=== PATIENT | female | born 1955 | race Caucasian/White ===

== ENCOUNTER → 2023-08-02 13:22 | Outpatient (REF) | payer MEDICARE, BC, SELFPAY | LOC: HWRAD 13:22 | PROVIDERS: ATTENDING PHYSICIAN Nurse Practitioner Primary Care | DX: M25.552 Pain in left hip (principal); Z80.52 Family history of malignant neoplasm of bladder | CPT/HCPCS: 76770 ==

== ENCOUNTER → 2023-09-16 10:45 | Outpatient (REF) | payer MEDICARE, BC, SELFPAY | LOC: HWRAD 10:45 | PROVIDERS: ATTENDING PHYSICIAN Internal Medicine Endocrinology, Diabetes & Metabolism; FAMILY PHYSICIAN Nurse Practitioner Primary Care | DX: E04.2 Nontoxic multinodular goiter (principal) | CPT/HCPCS: 76536 ==

== ENCOUNTER → 2024-04-18 15:48 | Outpatient (REF) | payer MEDICARE, BC, SELFPAY | LOC: WDC 15:48 | PROVIDERS: ATTENDING PHYSICIAN Student in an Organized Health Care Education/Training Program; FAMILY PHYSICIAN Internal Medicine Geriatric Medicine | DX: Z12.31 Encounter for screening mammogram for malignant neoplasm of breast (principal) | CPT/HCPCS: 77063; 77067 ==

== ENCOUNTER → 2024-09-14 11:50 | Outpatient (REF) | payer MEDICARE, BC, SELFPAY | LOC: HWRCS 11:50 | PROVIDERS: ATTENDING PHYSICIAN Nurse Practitioner Primary Care | DX: E11.9 Type 2 diabetes mellitus without complications (principal); E78.2 Mixed hyperlipidemia; I10 Essential (primary) hypertension; R06.09 Other forms of dyspnea | CPT/HCPCS: 93005; 93306 ==

== ENCOUNTER → 2024-09-19 13:17 | Outpatient (REF) | payer MEDICARE, BC, SELFPAY | LOC: RCS 13:17 | PROVIDERS: ATTENDING PHYSICIAN Nurse Practitioner Primary Care | DX: E11.9 Type 2 diabetes mellitus without complications (principal); E78.2 Mixed hyperlipidemia; I10 Essential (primary) hypertension; R06.09 Other forms of dyspnea | CPT/HCPCS: 93017; 93350 ==

== ENCOUNTER 2024-10-16 18:30 | Emergency (ER) | payer MEDICARE, BC, SELFPAY ==
[2024-10-16 18:30] VITALS: BMI 38.1
[2024-10-16 18:37] VITALS: BP 162/87
[2024-10-16 19:09] LABS: % Basophils 0.6 % (0-2); % Eosinophils 1.5 % (0-6); % Immature Granulocytes 0.3 % (0-0.5); % Lymphocytes 37.6 % (20.5-51.1); % Monocytes 6.3 % (1.7-9.3); % Neutrophils 53.7 % (42.2-75.2); Absolute Basophils 0.1 10^3/uL (0-0.2); Absolute Eosinophils 0.1 10^3/uL (0-0.7); Absolute Lymphocytes 3.4 10^3/uL (1.2-3.4); Absolute Monocytes 0.6 10^3/uL (0.1-0.6); Absolute Neutrophils 4.9 10^3/uL (1.4-6.5); Hematocrit 40.2 % (37.0-47.0); Hemoglobin 13.9 g/dL (12.0-16.0); Mean Corp Hgb Conc. 34.6 g/dL (33.0-37.0); Mean Corpuscular Hgb 28.4 pg (27.0-31.0); Mean Corpuscular Volume 82.2 fL (81.0-99.0); Mean Platelet Volume 11.1 fL (7.4-10.4); Nucleated Red Blood Cells % 0 %; Platelet Count 248 10^3/uL (130-400); Red Blood Cell Count 4.89 10^6/uL (4.20-5.40); Red Cell Dist. Width 13.5 % (11.5-14.5); White Blood Cell Count 9.1 10^3/uL (4.8-10.8)
[2024-10-16 19:12] LABS: Urine Albumin 1+ (Neg - Trace); Urine Bilirubin Negative (Negative); Urine Character Clear (Clear); Urine Color Yellow; Urine Glucose Negative (Negative); Urine Ketone 1+ (Negative); Urine Leukocyte 1+ (Negative); Urine Nitrite Negative (Negative); Urine Occult Blood 1+ (Negative); Urine Urobilinogen Negative (Neg - 1+)
[2024-10-16 19:21] LABS: ALT (SGPT) 30 U/L (0-35); AST (SGOT) 28 U/L (14-36); Albumin 5.1 g/dl (3.5-5.0); Alkaline Phosphatase 86 U/L (38-126); Blood Urea Nitrogen 17 mg/dl (7-17); Calcium 10.4 mg/dl (8.4-10.2); Carbon Dioxide 23 mmol/L (22-30); Chloride 107 mmol/L (98-107); Glucose 117 mg/dl (70-99); Potassium 4.3 mmol/L (3.5-5.1); Sodium 142 mmol/L (135-145); Total Bilirubin 0.6 mg/dl (0.2-1.3); Total Protein 8.3 g/dl (6.3-8.2); eGFR > 60.00
[2024-10-16 20:03] LABS: Urine Bacteria Few (Negative); Urine Red Blood Cell 0-2 /HPF (0-2); Urine Squamous Cell 21-25 /LPF (Few)
[2024-10-16 22:25] VITALS: BP 164/88
[2024-10-17 00:06] VITALS: BP 141/90
[2024-10-17] MEDS: TORADOL 15 MG IV (00:21)
--- NOTE | 2024-10-17 00:37 | ED.GENMED ---
History of Present Illness
General
Chief Complaint: Back Pain
Source: patient and spouse
Exam Limitations: none
Time Seen by Provider: 10/17/24 00:17
Nursing documentation reviewed up to this point in time: agreed with
History of Present Illness
History of Present Illness:
69-year-old female presents emergency department due to right flank pain that began earlier today. She took Tylenol that helped a little. No aggravating relieving factors.
Past History
Past History
ED Past Medical History: Hypercholesterolemia and Other (Kidney stones)
ED Past Surgical History: Orthopedic (Right shoulder surgery)
Social History
Tobacco: Non-smoker
Alcohol: None
Drug: None
Personal:
Review of Systems
Review of Systems
Allergies reviewed?: Yes
All Other Systems: Not applicable
Constitutional: Reports no symptoms
EENT: Reports no symptoms
Respiratory: Reports no symptoms
Cardiac: Reports no symptoms
ABD/GI: Reports nausea
: Reports flank pain
Musculoskeletal: Reports no symptoms
Skin: Reports no symptoms
Neurological: Reports no symptoms
Endocrine: Reports no symptoms
Hematologic/Lymphatic: Reports no symptoms
Psychiatric: Reports no symptoms
Phy Exam
Physical Exam
Physical Exam:
Physical Exam
General: Afebrile, appears uncomfortable
Neck: supple. no meningeal signs. normal posterior pharynx
Heart: s1/s2 regular rate and rhythm, no murmur. equal radial
pulses.
HEENT: Pupils equal round reactive to light, EOMI
Lungs: no acute respiratory distress. clear bilaterally
Abdomen: normal bowel sounds. not tender. no CVAT
Neuro: alert and oriented. no focal neurological deficits cranial nerves II through XII intact
Skin: no rash
Psychiatric: well kept. interactive and cooperative
Extremities: no edema. no calf tenderness. negative homans. good distal pulses
Course
Orders/Labs/Results
Orders:
Orders
10/16/24 18:56
CMP [Comprehensive Metabolic Panel] Urgent
Complete Blood Count/With Diff Urgent
Urinalysis Reflex To Culture Urgent
Date Specimen was Collected: 10/16/24
Time Specimen was Collected: 18:41
Urine Microscopic Reflex Cult Urgent
Urine Culture Urgent
JOHAN Source: U
Specimen Description:
Date Specimen was Collected: 10/16/24
Time Specimen was Collected: 18:41
10/17/24 00:18
Ketorolac [Toradol] 15 mg IV NOW STA
Ondansetron Injectable [Zofran] 4 mg IV NOW STA
10/17/24 00:19
Ketorolac [Toradol] 15 mg .ROUTE .STK-MED ONE
10/17/24 00:36
CT Abd/pel Without Iv Or Oral Urgent
Comment:
Reason For Exam: Right flank pain
Abnormal Lab Results
10/16/24
18:56
MPV 11.1 H fL
(7.4-10.4)
Glucose 117 H mg/dl
(70-99)
Calcium 10.4 H mg/dl
(8.4-10.2)
Total Protein 8.3 H g/dl
(6.3-8.2)
Albumin 5.1 H g/dl
(3.5-5.0)
Urine Ketones 1+ A
(Negative)
Ur Occult Blood Reflex 1+ A
(Negative)
Leukocyte Esterase Rfl 1+ A
(Negative)
Urine Bacteria (Reflex) Few A
(Negative)
Urine Albumin (Reflex) 1+ A
(Neg - Trace)
10/16/24 18:56
10/16/24 18:56
Vital Signs
Initial and Last Documented VS:
Initial Vital Signs
Temp Pulse Resp BP Pulse Ox
98.2 F 82 18 162/87 95
10/16/24 18:37 10/16/24 18:37 10/16/24 18:37 10/16/24 18:37 10/16/24 18:37
Last Documented Vital Signs
Temp Pulse Resp BP Pulse Ox
98.2 F 71 15 128/71 92
10/16/24 18:37 10/17/24 02:45 10/17/24 02:45 10/17/24 02:00 10/17/24 02:45
MDM/Problems Addressed
Differential Diagnosis Includes:
Kidney stone, UTI, constipation
MDM/Problems Addressed:
69-year-old female with right flank pain, possibly due to constipation versus back strain. No signs of appendicitis. Vital signs stable. Pain-free at this time.
*Radiology
Radiology exam reviewed: radiology read reviewed (CT abdomen pelvis no acute findings)
*Pulse Oximetry
Patient hypoxic: no
*Critical Care Note
Total Time (30-74mins, 75-104mins- exclusive of procedures): Not Applicable
Patient Management
Social determinants of health affecting care: Living situation and Strong social support
Escalation/DeEscalation of care consider admission/obs:
Admit not indicated
ED Attending Note
-
Portions of this chart may have been created with voice recognition software.� Occasional wrong word or��sound alike� substitutions may have occurred due to the inherent limitations of voice recognition software.
Discharge Plan
Departure
Patient Disposition: Home (Routine Discharge)
Date of Disposition: 10/17/24
Time of Disposition: 02:59
Patient with high blood pressure during this ER visit?: Yes
Condition: Good
Discharge Problem:
Acute right flank pain, Constipation
Instructions: Constipation in adults - ED discharge instructions, Flank pain - ED discharge instructions, BLOOD PRESSURE
Referrals:
Kimberly Vega CRNP [Family Provider] - Call in 1-3 days for appt
Interventions
Interventions:
*Risk Screen - Suicide Last Done: 10/16/24 18:37
*General Assessment Last Done: 10/16/24 18:37
ED-Musculoskeletal Assessment Last Done: 10/17/24 00:26
Discharge Date and Time
Print Language: ROMANIAN
[2024-10-17 01:00] VITALS: BP 123/75
[2024-10-17 02:00] VITALS: BP 128/71
== END 2024-10-17 04:10 | disposition home or self-care (01) ==
LOC: EMR 18:30
PROVIDERS: Emergency Medicine; EMERGENCY PHYSICIAN Emergency Medicine; FAMILY PHYSICIAN Nurse Practitioner Primary Care
DX: R10.9 Unspecified abdominal pain (principal); M54.9 Dorsalgia, unspecified; E78.00 Pure hypercholesterolemia, unspecified; K59.00 Constipation, unspecified; Z87.442 Personal history of urinary calculi
CPT/HCPCS: 99284; 96374; 74176; 80053; 81003; 81015; 85025; 87086